=== PATIENT | female | born 1940 | race Caucasian/White ===

== ENCOUNTER 2021-04-02 10:35 | Emergency (ER) | payer MEDICARE ==
[~2021-04-02] VITALS: Ht 157.5 cm; Wt 59.0 kg
[2021-04-02] MEDS ORDERED: LEVOTHYROXIN125 MCG PO (11:04)
[2021-04-02] MEDS ORDERED: METOPROL TAR25 MG PO (11:05)
[2021-04-02] MEDS ORDERED: XARELTO10 MG PO (11:05)
[2021-04-02] MEDS ORDERED: GABAPENTIN300 M2 (11:05)
[2021-04-02] MEDS ORDERED: HYDROCHLOROTH12.5 M1 PO (11:06)
[2021-04-02] MEDS ORDERED: LORTAB 5/3255 MG PO (20:09)
[2021-04-02 21:00] VITALS: BP 162/70
== END 2021-04-02 21:00 | disposition home or self-care (01) ==
LOC: ED 10:35
DX: M25.552 Pain in left hip (principal); R07.81 Pleurodynia; I10 Essential (primary) hypertension; E11.9 Type 2 diabetes mellitus without complications; W01.0XXA Fall on same level from slipping, tripping and stumbling without subsequent striking against object, initial encounter; Y93.89 Activity, other specified; Y92.410 Unspecified street and highway as the place of occurrence of the external cause; Z79.01 Long term (current) use of anticoagulants